=== PATIENT | female | born 1940 | race Caucasian/White ===

== ENCOUNTER 2021-11-12 09:54 | Outpatient (CLI) | payer MEDICARE, OTHER | END 2021-11-12 09:55 | disposition home or self-care (01) | LOC: CSHMAMMO 09:54 | PROVIDERS: ATTEND Internal Medicine | DX: Z12.31 Encounter for screening mammogram for malignant neoplasm of breast (principal); Z85.3 Personal history of malignant neoplasm of breast; Z90.11 Acquired absence of right breast and nipple | CPT/HCPCS: 77063; 77067 ==

== ENCOUNTER 2022-11-13 08:32 | Outpatient (CLI) | payer MEDICARE, OTHER | END 2022-11-13 08:33 | disposition home or self-care (01) | LOC: CSHMAMMO 08:32 | PROVIDERS: ATTEND Internal Medicine | DX: Z12.31 Encounter for screening mammogram for malignant neoplasm of breast (principal); Z90.11 Acquired absence of right breast and nipple | CPT/HCPCS: 77063; 77067 ==

== ENCOUNTER 2024-11-23 11:21 | Outpatient (CLI) | payer MEDICARE, OTHER | END 2024-11-23 11:22 | disposition home or self-care (01) | LOC: CSHMAMMO 11:21 | PROVIDERS: ATTEND Internal Medicine | DX: Z12.31 Encounter for screening mammogram for malignant neoplasm of breast (principal); Z85.3 Personal history of malignant neoplasm of breast; Z90.11 Acquired absence of right breast and nipple | CPT/HCPCS: 77063; 77067 ==